=== PATIENT | female | born 1960 | race Caucasian/White ===

== ENCOUNTER 2016-06-29 21:09 | Observation (INO) | payer MEDICAID ==
[~2016-06-29] VITALS: Ht 154.9 cm; Wt 45.4 kg
[2016-06-30 10:10] VITALS: BP 111/69
[2016-06-30] MEDS ORDERED: MORPHINE SULF INJ 2 MG/ML SYRINGE 1ML IV ONE (10:30)
[2016-06-30] MEDS ORDERED: ONDANSETRON HCL 4 MG/2 ML VIAL IV ONE (10:30)
[2016-06-30 11:07] LABS: Basophils # (auto) 0.1 uL; Basophils % (auto) 0.8 % (0.0-2.0); Eosinophils # (auto) 0.2 uL; Eosinophils % (auto) 2.7 % (0.0-7.0); Hematocrit 42.8 % (36.0-46.0); Hemoglobin 14.1 g/dL (12.2-16.2); Lymphocytes % (auto) 23.3 % (10.0-50.0); Mean Corpuscular Hemoglobin 29.3 pg (28.0-32.0); Mean Corpuscular Volume 88.7 fL (80.0-100.0); Mean Platelet Volume 8.2 fL (7.4-10.4); Monocytes # (auto) 0.7 uL; Monocytes % (auto) 7.8 % (0.0-12.0); Neutrophils # (auto) 5.5 uL; Neutrophils % (auto) 65.4 % (37.0-80.0); Platelet Count (auto) 408 10^3/uL (140-450); Red Cell Distribution Width 14.5 % (11.6-16.0); White Blood Cell 8.4 10^3/uL (4.4-10.8)
[2016-06-30 11:36] LABS: Albumin 4.4 g/dL (3.4-5.0); BUN/Creatinine Ratio 16.9; Calcium 7.1 mg/dL (8.5-10.1); Potassium 4.1 mmol/L (3.5-5.1)
[2016-06-30 11:39] LABS: Bilirubin, Total 0.4 mg/dL (0.2-1.0)
[2016-06-30] MEDS ORDERED: SODIUM CHLORIDE 0.9% 1,000 ML IV ONE (11:45)
[2016-06-30 15:33] LABS: Urine Bilirubin Negative (Negative); Urine Blood Negative /uL (Negative); Urine Color Yellow (Yellow); Urine Glucose Normal (Normal); Urine Ketone Negative (Negative); Urine Mucus FEW (None Seen); Urine Nitrite Negative (Negative); Urine RBC 112 /hpf (0 - 4); Urine Squamous Epithelial Cell MOD /hpf (<5); Urine WBC Clumps PRESENT /hpf (None Seen); Urine pH 5.5 (5.0-8.0)
== END 2016-06-30 15:49 | disposition home or self-care (01) | DRG 347 ==
LOC: ER 21:16 → OVERFLOW 06-30 08:05 → ER 06-30 15:49
PROVIDERS: ADMIT Emergency Medicine; ATTEND Emergency Medicine
DX: M48.54XA Collapsed vertebra, not elsewhere classified, thoracic region, initial encounter for fracture (principal); M51.24 Other intervertebral disc displacement, thoracic region; M40.204 Unspecified kyphosis, thoracic region; M54.2 Cervicalgia; F17.210 Nicotine dependence, cigarettes, uncomplicated
CPT/HCPCS: 36415; 72128; 80053; 81001; 81025; 85025; 96361; 96374; 96375; 99285; G0378; J2270; J2405; J7030

== ENCOUNTER 2016-10-30 00:44 | Inpatient (IN) | payer MEDICAID ==
[~2016-10-30] VITALS: Ht 167.6 cm; Wt 49.9 kg
[~2016-10-30 00:44] MED LIST: OLAN20TA13 PO; TRAZ100T2 PO
[2016-10-30 10:22] LABS: Basophils # (auto) 0 uL; Basophils % (auto) 0.3 % (0.0-2.0); CONDITION Y; Eosinophils # (auto) 0.2 uL; Eosinophils % (auto) 1.4 % (0.0-7.0); Hematocrit 42.1 % (36.0-46.0); Hemoglobin 14.2 g/dL (12.2-16.2); Lymphocytes # (auto) 1.5 uL; Lymphocytes % (auto) 12.3 % (10.0-50.0); Mean Corpuscular Hemoglobin 29.5 pg (28.0-32.0); Mean Corpuscular Hgb Conc. 33.8 g/dL (32.0-36.0); Mean Corpuscular Volume 87.5 fL (80.0-100.0); Mean Platelet Volume 7.7 fL (7.4-10.4); Monocytes # (auto) 0.7 uL; Monocytes % (auto) 6.2 % (0.0-12.0); Neutrophils # (auto) 9.5 uL; Neutrophils % (auto) 79.8 % (37.0-80.0); Platelet Count (auto) 337 10^3/uL (140-450); Red Cell Distribution Width 15.8 % (11.6-16.0); White Blood Cell 11.9 10^3/uL (4.4-10.8)
[2016-10-30 10:56] LABS: Albumin 3.5 g/dL (3.4-5.0); BUN/Creatinine Ratio 21.5; Bilirubin, Total 0.6 mg/dL (0.2-1.0); Calcium 8.7 mg/dL (8.5-10.1); Magnesium 2.1 mg/dL (1.6-2.6); Total Protein 7.6 g/dL (6.4-8.2)
[2016-10-30] MEDS ORDERED: SODIUM CHLORIDE 0.9% 1,000 ML IVB ONE (11:58)
[2016-10-30] MEDS ORDERED: MORPHINE SULF INJ 2 MG/ML SYRINGE 1ML IV PRN ×2 (12:00→14:45)
[2016-10-30] MEDS ORDERED: ONDANSETRON HCL 4 MG/2 ML VIAL IV ONE (12:00)
[2016-10-30 12:47] LABS: INR 1.02 (0.9-1.15); Partial Thromboplastin Time 29.9 sec (22.64-33.71); Prothrombin Time 11.1 sec (9.37-12.3)
[2016-10-30 12:49] LABS: Amylase 46 U/L (25-115)
[2016-10-30 13:37] LABS: Urine Bilirubin Negative (Negative); Urine Color Yellow (Yellow); Urine Glucose Normal (Normal); Urine Ketone Negative (Negative); Urine Nitrite Negative (Negative); Urine RBC <1 /hpf (0 - 4); Urine Squamous Epithelial Cell FEW /hpf (<5); Urine Urobilinogen Normal (Negative)
[2016-10-30 13:40] LABS: Urine Blood 1+ /uL (Negative)
[2016-10-30] MEDS ORDERED: LACTULOSE 20Gm/30ML SOLN PO PRN (14:30)
[2016-10-30] MEDS ORDERED: ACETAMINOPHEN 500 MG TAB PO PRN (14:30)
[2016-10-30] MEDS ORDERED: TEMAZEPAM 15 MG CAP PO PRN (14:30)
[2016-10-30] MEDS ORDERED: ONDANSETRON HCL 4 MG/2 ML VIAL IV PRN (14:30)
[2016-10-30] MEDS ORDERED: HYDROcodone-ACET 5/325MG TAB PO PRN (14:30)
[2016-10-30] MEDS ORDERED: SODIUM CHLORIDE 0.9% 1,000 ML IV SCH (14:30)
[2016-10-30] MEDS ORDERED: LORazepam 0.5 MG TAB PO PRN (14:30)
[2016-10-30] MEDS ORDERED: NITROGLYCERIN 0.4 MG SL TAB SL PRN (14:45)
[2016-10-30 15:19] LABS: Cholesterol 179 mg/dL (< 200); HDL Cholesterol 62 mg/dL (40-59); LDL Cholesterol 101 mg/dL (< 100); Triglycerides 136 mg/dL (< 150)
[2016-10-30 15:21] LABS: Temperature: 23.4 C (20.0-25.0)
[2016-10-30] MEDS: MORPHINE SULF INJ 2 MG/ML SYRINGE 1ML IV PRN ×2 (15:41→20:40)
[2016-10-30] MEDS ORDERED: DEXAMETHASONE SOD PHOS 10MG/1ML VIAL INJ IM ONE (20:30)
[2016-10-30] MEDS ORDERED: ATORVASTATIN 20 MG TAB PO SCH (22:00)
[2016-10-30] MEDS: traZODone HCL 50 MG TAB PO SCH (22:25)
[2016-10-30] MEDS: METOCLOPRAMIDE HCL 10 MG TAB PO SCH (22:26)
[2016-10-30] MEDS: MORPHINE SULF 15mg ER tab PO SCH (22:26)
[2016-10-30] MEDS: OLANZapine 5 MG TAB PO SCH (22:26)
[2016-10-30] MEDS: SODIUM CHLORIDE 0.9% 1,000 ML IV SCH (22:27)
[2016-10-30 22:58] VITALS: BP 120/68
[2016-10-31] MEDS ORDERED: MORP60TA25 PO (00:18)
[2016-10-31] MEDS ORDERED: LOR05T PO (00:18)
[2016-10-31] MEDS: MORPHINE SULF INJ 2 MG/ML SYRINGE 1ML IV PRN ×5 (01:13→22:26)
[2016-10-31 05:00] VITALS: BP 89/57
[2016-10-31] MEDS: METOCLOPRAMIDE HCL 10 MG TAB PO SCH ×3 (05:17→22:25)
[2016-10-31] MEDS: SODIUM CHLORIDE 0.9% 1,000 ML IV SCH ×2 (06:15→17:15)
[2016-10-31 08:05] LABS: Basophils # (auto) 0 uL; CONDITION Y; Eosinophils # (auto) 0 uL; Hemoglobin 11.9 g/dL (12.2-16.2); Lymphocytes # (auto) 0.7 uL; Lymphocytes % (auto) 8.8 % (10.0-50.0); Mean Corpuscular Hemoglobin 29.8 pg (28.0-32.0); Mean Corpuscular Hgb Conc. 33.2 g/dL (32.0-36.0); Mean Corpuscular Volume 89.8 fL (80.0-100.0); Mean Platelet Volume 7.7 fL (7.4-10.4); Monocytes # (auto) 0.3 uL; Monocytes % (auto) 3.2 % (0.0-12.0); Neutrophils # (auto) 7.3 uL; Platelet Count (auto) 240 10^3/uL (140-450); Red Cell Distribution Width 15.7 % (11.6-16.0); White Blood Cell 8.3 10^3/uL (4.4-10.8)
[2016-10-31 08:21] LABS: INR 1.06 (0.9-1.15); Partial Thromboplastin Time 29.6 sec (22.64-33.71); Prothrombin Time 11.6 sec (9.37-12.3)
[2016-10-31 08:39] LABS: Albumin 2.9 g/dL (3.4-5.0); Alkaline Phosphatase 92 U/L (45-117); Anion Gap 11 (5-15); Aspartate Aminotransferase 376 U/L (15-37); BUN/Creatinine Ratio 13.4; Bilirubin, Total 0.3 mg/dL (0.2-1.0); Blood Urea Nitrogen 9 mg/dL (7-18); Calcium 8.3 mg/dL (8.5-10.1); Carbon Dioxide 18 mmol/L (21-32); Chloride 105 mmol/L (98-107); GFR African American 117 mL/min; GFR Non-African American 97 mL/min; Glucose 166 mg/dL (74-106); Potassium 4.2 mmol/L (3.5-5.1); Sodium 134 mmol/L (136-145); Total Protein 6.5 g/dL (6.4-8.2)
[2016-10-31 08:48] VITALS: BP 92/56
[2016-10-31] MEDS: ENOXAPARIN SOD 30 MG/0.3 ML SYRINGE SC SCH (10:26)
[2016-10-31] MEDS: DEXAMETHASONE SOD PHOS 10MG/1ML VIAL INJ IM SCH (10:26)
[2016-10-31] MEDS: ASPirin 81 mg TAB PO SCH (10:27)
[2016-10-31] MEDS: MORPHINE SULF 15mg ER tab PO SCH ×2 (10:27→22:00)
[2016-10-31 13:00] VITALS: BP 86/55
[2016-10-31] MEDS ORDERED: SODIUM CHLORIDE 0.9% 1,000 ML IV SCH (14:30)
[2016-10-31 16:45] VITALS: BP 92/65
[2016-10-31 20:00] VITALS: BP 101/63
[2016-10-31 22:00] VITALS: BP 101/63
[2016-10-31] MEDS: traZODone HCL 50 MG TAB PO SCH (22:25)
[2016-10-31] MEDS: OLANZapine 5 MG TAB PO SCH (22:25)
[2016-10-31] MEDS: ATORVASTATIN 20 MG TAB PO SCH (22:25)
[2016-11-01 05:30] VITALS: BP 96/53
[2016-11-01] MEDS: METOCLOPRAMIDE HCL 10 MG TAB PO SCH ×3 (05:47→22:05)
[2016-11-01 07:26] LABS: Basophils # (auto) 0 uL; Basophils % (auto) 0.2 % (0.0-2.0); CONDITION Y; Eosinophils # (auto) 0 uL; Eosinophils % (auto) 0.1 % (0.0-7.0); Hematocrit 32.8 % (36.0-46.0); Lymphocytes # (auto) 1.7 uL; Lymphocytes % (auto) 15.1 % (10.0-50.0); Mean Corpuscular Hemoglobin 29.9 pg (28.0-32.0); Mean Corpuscular Hgb Conc. 33.5 g/dL (32.0-36.0); Mean Corpuscular Volume 89.1 fL (80.0-100.0); Mean Platelet Volume 8.1 fL (7.4-10.4); Monocytes # (auto) 0.8 uL; Monocytes % (auto) 6.9 % (0.0-12.0); Neutrophils # (auto) 8.9 uL; Neutrophils % (auto) 77.7 % (37.0-80.0); Platelet Count (auto) 199 10^3/uL (140-450); Red Cell Distribution Width 15.6 % (11.6-16.0); White Blood Cell 11.4 10^3/uL (4.4-10.8)
[2016-11-01 07:44] LABS: BUN/Creatinine Ratio 19.6; Calcium 8.6 mg/dL (8.5-10.1); Potassium 4.1 mmol/L (3.5-5.1)
[2016-11-01] MEDS: SODIUM CHLORIDE 0.9% 1,000 ML IV SCH ×2 (07:44→19:12)
[2016-11-01 09:00] VITALS: BP 92/54
[2016-11-01] MEDS: MORPHINE SULF 15mg ER tab PO SCH ×2 (09:38→22:00)
[2016-11-01] MEDS: ASPirin 81 mg TAB PO SCH (09:38)
[2016-11-01] MEDS: DEXAMETHASONE SOD PHOS 10MG/1ML VIAL INJ IM SCH (09:39)
[2016-11-01] MEDS: MORPHINE SULF INJ 2 MG/ML SYRINGE 1ML IV PRN ×4 (09:39→22:05)
[2016-11-01] MEDS: ENOXAPARIN SOD 30 MG/0.3 ML SYRINGE SC SCH (09:39)
[2016-11-01] MEDS ORDERED: METO10TA3 PO (13:26)
[2016-11-01] MEDS ORDERED: ATOR20TA50 PO (13:26)
[2016-11-01] MEDS ORDERED: ASPI81CH43 PO (13:26)
[2016-11-01] MEDS ORDERED: [UNRECOGNIZED DRUG - CODE] PO (13:26)
[2016-11-01 13:40] VITALS: BP 141/99
[2016-11-01 16:36] VITALS: BP 139/79
[2016-11-01 20:00] VITALS: BP 148/73
[2016-11-01 21:48] VITALS: BP 124/56
[2016-11-01] MEDS: traZODone HCL 50 MG TAB PO SCH (22:04)
[2016-11-01] MEDS: ATORVASTATIN 20 MG TAB PO SCH (22:04)
[2016-11-01] MEDS: OLANZapine 5 MG TAB PO SCH (22:05)
[2016-11-02 04:30] VITALS: BP 107/49
[2016-11-02] MEDS: METOCLOPRAMIDE HCL 10 MG TAB PO SCH ×2 (06:21→15:15)
[2016-11-02 08:00] VITALS: BP 117/74
[2016-11-02] MEDS: SODIUM CHLORIDE 0.9% 1,000 ML IV SCH (08:15)
[2016-11-02 09:00] VITALS: BP 117/74
[2016-11-02] MEDS: MORPHINE SULF INJ 2 MG/ML SYRINGE 1ML IV PRN (09:55)
[2016-11-02] MEDS: ASPirin 81 mg TAB PO SCH (09:55)
[2016-11-02] MEDS: ENOXAPARIN SOD 30 MG/0.3 ML SYRINGE SC SCH (09:55)
[2016-11-02] MEDS: DEXAMETHASONE SOD PHOS 10MG/1ML VIAL INJ IM SCH (09:55)
[2016-11-02] MEDS: MORPHINE SULF 15mg ER tab PO SCH (10:00)
[2016-11-02 16:36] VITALS: BP 137/76
[2016-11-02 17:07] VITALS: BP 137/76
== END 2016-11-02 17:40 | disposition home health service (06) | DRG 48 ==
LOC: ER 00:44 → EDBD 00:44 → TELE 00:45 → TELE-EAST 21:48 → EAST 11-01 08:58
PROVIDERS: ADMIT Nurse Practitioner Family; ATTEND Nurse Practitioner Acute Care
DX: G62.9 Polyneuropathy, unspecified (principal); E87.1 Hypo-osmolality and hyponatremia; I10 Essential (primary) hypertension; R10.9 Unspecified abdominal pain; J44.9 Chronic obstructive pulmonary disease, unspecified; M48.54XA Collapsed vertebra, not elsewhere classified, thoracic region, initial encounter for fracture; E86.0 Dehydration; F32.9 Major depressive disorder, single episode, unspecified; E78.5 Hyperlipidemia, unspecified; D72.829 Elevated white blood cell count, unspecified; F17.210 Nicotine dependence, cigarettes, uncomplicated; F12.90 Cannabis use, unspecified, uncomplicated; F41.9 Anxiety disorder, unspecified; G44.52 New daily persistent headache (NDPH); G56.00 Carpal tunnel syndrome, unspecified upper limb; G89.4 Chronic pain syndrome; M54.9 Dorsalgia, unspecified; Z90.411 Acquired partial absence of pancreas; Z90.710 Acquired absence of both cervix and uterus; Z93.2 Ileostomy status; Z85.07 Personal history of malignant neoplasm of pancreas; Z82.49 Family history of ischemic heart disease and other diseases of the circulatory system; Z80.0 Family history of malignant neoplasm of digestive organs; Z85.038 Personal history of other malignant neoplasm of large intestine
CPT/HCPCS: 36415; 70450; 71020; 74176; 76705; 80048; 80053; 80061; 80307; 80329; 81001; 82150; 82550; 82607; 82746; 83036; 83690; 83735; 84443; 84484; 85025; 85610; 85652; 85730; 86141; 87081; 87493; 93005; 94761; 96361; 96372; 96374; 96375; 97116; 97163; 97530; J1100; J2405

== ENCOUNTER 2017-03-23 17:01 | Emergency (ER) | payer MEDICAID ==
[~2017-03-23] VITALS: Ht 154.9 cm; Wt 45.4 kg
[~2017-03-23 17:01] MED LIST changes: +ASPI81CH43 PO; +ATOR20TA50 PO; +LORA-654 PO; +METO10TA3 PO; +MORP60TA25 PO; +[UNRECOGNIZED DRUG - CODE] PO
[2017-03-23 17:15] VITALS: BP 143/71
== END 2017-03-23 21:53 | disposition left against medical advice (07) ==
LOC: EDBD 17:01 → ER 17:11
DX: R55 Syncope and collapse (principal); Z53.21 Procedure and treatment not carried out due to patient leaving prior to being seen by health care provider

== ENCOUNTER 2017-09-14 14:27 | Inpatient (IN) | payer MEDICAID ==
[~2017-09-14] VITALS: Ht 152.4 cm; Wt 40.0 kg
[2017-09-14 15:06] LABS: Basophils # (auto) 0 uL; Basophils % (auto) 0.4 % (0.0-2.0); Eosinophils # (auto) 0.1 uL; Eosinophils % (auto) 0.8 % (0.0-7.0); Hematocrit 41.8 % (36.0-46.0); Hemoglobin 13.9 g/dL (12.2-16.2); Lymphocytes # (auto) 1.5 uL; Lymphocytes % (auto) 16.6 % (10.0-50.0); Mean Corpuscular Hemoglobin 29.8 pg (28.0-32.0); Mean Corpuscular Hgb Conc. 33.2 g/dL (32.0-36.0); Mean Corpuscular Volume 89.8 fL (80.0-100.0); Monocytes # (auto) 0.7 uL; Monocytes % (auto) 7.8 % (0.0-12.0); Neutrophils # (auto) 6.9 uL; Neutrophils % (auto) 74.4 % (37.0-80.0); Nucleated Red Blood Cells % 0.1 %; Platelet Count (auto) 324 10^3/uL (140-450); Red Blood Cells 4.66 10^6/uL (4.0-5.20); Red Cell Distribution Width 14.9 % (11.8-14.3); White Blood Cell 9.3 10^3/uL (4.4-10.8)
[2017-09-14] MEDS ORDERED: SODIUM CHLORIDE 0.9% 500 ML IVB ONE (15:12)
[2017-09-14] MEDS ORDERED: PANTOPRAZOLE 40 MG/10 ML VIAL IV STA (15:12)
[2017-09-14] MEDS ORDERED: HYDROmorphone HCL 2 MG/ML VL IV ONE (15:15)
[2017-09-14] MEDS ORDERED: ONDANSETRON HCL 4 MG/2 ML VIAL IV ONE (15:15)
[2017-09-14 15:37] LABS: Albumin 3.5 g/dL (3.4-5.0); BUN/Creatinine Ratio 30.8; Bilirubin, Total 0.2 mg/dL (0.2-1.0); Calcium 9.4 mg/dL (8.5-10.1); Magnesium 2.9 mg/dL (1.6-2.6); Potassium 4.4 mmol/L (3.5-5.1); Total Protein 7.9 g/dL (6.4-8.2)
[2017-09-14] MEDS ORDERED: METOCLOPRAMIDE HCL 10 MG TAB PO PRN (18:15)
[2017-09-14] MEDS ORDERED: PANTOPRAZOLE 40 MG TAB PO ONE (18:15)
[2017-09-14] MEDS ORDERED: OXYCODONE W/ ACETAMINOPHEN 5/325MG TABLET PO PRN (18:15)
[2017-09-14] MEDS ORDERED: ONDANSETRON HCL 4 MG/2 ML VIAL IV PRN (18:30)
[2017-09-14] MEDS ORDERED: TEMAZEPAM 15 MG CAP PO PRN (18:30)
[2017-09-14] MEDS ORDERED: ACETAMINOPHEN 325 MG TAB PO PRN (18:30)
[2017-09-14] MEDS ORDERED: LORazepam 2MG/ML-1ML VIAL IV PRN (18:45)
[2017-09-14] MEDS: SODIUM CHLORIDE 0.9% 1,000 ML IV SCH (19:25)
[2017-09-14 19:50] VITALS: BP 121/71
[2017-09-14] MEDS: CALCIUM CARB 500 MG CHEW TAB PO SCH (21:50)
[2017-09-14] MEDS: MEGESTROL ACETATE 20 MG TAB PO SCH (21:50)
[2017-09-14] MEDS: FAMOTIDINE 20 MG TAB PO SCH (21:51)
[2017-09-14 22:00] VITALS: BP 121/71
[2017-09-15 06:49] LABS: Basophils # (auto) 0 uL; Basophils % (auto) 0.6 % (0.0-2.0); Eosinophils # (auto) 0.1 uL; Eosinophils % (auto) 2.2 % (0.0-7.0); Hematocrit 37.3 % (36.0-46.0); Hemoglobin 12.4 g/dL (12.2-16.2); Lymphocytes # (auto) 1.4 uL; Lymphocytes % (auto) 24.5 % (10.0-50.0); Mean Corpuscular Hemoglobin 29.9 pg (28.0-32.0); Mean Corpuscular Hgb Conc. 33.2 g/dL (32.0-36.0); Mean Corpuscular Volume 90.1 fL (80.0-100.0); Monocytes # (auto) 0.5 uL; Monocytes % (auto) 9.4 % (0.0-12.0); Neutrophils # (auto) 3.6 uL; Neutrophils % (auto) 63.3 % (37.0-80.0); Nucleated Red Blood Cells % 0.1 %; Platelet Count (auto) 249 10^3/uL (140-450); Red Blood Cells 4.14 10^6/uL (4.0-5.20); Red Cell Distribution Width 15.1 % (11.8-14.3); White Blood Cell 5.7 10^3/uL (4.4-10.8)
[2017-09-15 07:10] LABS: Potassium 3.9 mmol/L (3.5-5.1)
[2017-09-15 07:15] LABS: Bilirubin, Total 0.3 mg/dL (0.2-1.0); Calcium 8.5 mg/dL (8.5-10.1); Total Protein 6.6 g/dL (6.4-8.2)
[2017-09-15 09:01] VITALS: BP 118/68
[2017-09-15] MEDS: FERROUS SULFATE 300 MG/5 ML ORAL LIQ PO SCH ×2 (09:11→17:22)
[2017-09-15] MEDS: MULTIPLE VITAMIN TAB PO SCH (10:21)
[2017-09-15] MEDS: FAMOTIDINE 20 MG TAB PO SCH (10:21)
[2017-09-15] MEDS: MEGESTROL ACETATE 20 MG TAB PO SCH ×2 (10:22→21:53)
[2017-09-15] MEDS: CALCIUM CARB 500 MG CHEW TAB PO SCH ×2 (10:22→21:52)
[2017-09-15] MEDS: PANTOPRAZOLE 40 MG TAB PO SCH (10:22)
[2017-09-15] MEDS: LORazepam 0.5 MG TAB PO PRN ×2 (10:50→17:21)
[2017-09-15] MEDS: SODIUM CHLORIDE 0.9% 1,000 ML IV SCH (10:58)
[2017-09-15] MEDS: MORPHINE SULFATE 8mg/ml INJ SDV IV PRN ×2 (12:23→20:41)
[2017-09-15 13:17] VITALS: BP 120/75
[2017-09-15 17:16] VITALS: BP 112/69
[2017-09-15 22:00] VITALS: BP 116/65
[2017-09-16] MEDS: SODIUM CHLORIDE 0.9% 1,000 ML IV SCH ×2 (03:38→22:30)
[2017-09-16] MEDS: MORPHINE SULFATE 8mg/ml INJ SDV IV PRN ×4 (04:47→22:40)
[2017-09-16 05:54] VITALS: BP 97/70
[2017-09-16 07:06] LABS: Basophils # (auto) 0 uL; Basophils % (auto) 0.5 % (0.0-2.0); Eosinophils # (auto) 0.2 uL; Eosinophils % (auto) 1.8 % (0.0-7.0); Hematocrit 38.1 % (36.0-46.0); Hemoglobin 12.7 g/dL (12.2-16.2); Lymphocytes # (auto) 1.5 uL; Lymphocytes % (auto) 17.5 % (10.0-50.0); Mean Corpuscular Hemoglobin 30.5 pg (28.0-32.0); Mean Corpuscular Hgb Conc. 33.3 g/dL (32.0-36.0); Mean Corpuscular Volume 91.4 fL (80.0-100.0); Monocytes # (auto) 0.9 uL; Monocytes % (auto) 10.3 % (0.0-12.0); Neutrophils % (auto) 69.9 % (37.0-80.0); Nucleated Red Blood Cells % 0.1 %; Platelet Count (auto) 263 10^3/uL (140-450); Red Blood Cells 4.17 10^6/uL (4.0-5.20); Red Cell Distribution Width 15.1 % (11.8-14.3); White Blood Cell 8.6 10^3/uL (4.4-10.8)
[2017-09-16 07:27] LABS: BUN/Creatinine Ratio 26.7; Potassium 3.9 mmol/L (3.5-5.1)
[2017-09-16 07:28] LABS: Albumin 3.3 g/dL (3.4-5.0); Bilirubin, Total 0.2 mg/dL (0.2-1.0); Calcium 8.6 mg/dL (8.5-10.1); Magnesium 2.2 mg/dL (1.6-2.6); Total Protein 6.9 g/dL (6.4-8.2)
[2017-09-16 09:00] VITALS: BP 106/67
[2017-09-16] MEDS: MULTIPLE VITAMIN TAB PO SCH (09:59)
[2017-09-16] MEDS: MEGESTROL ACETATE 20 MG TAB PO SCH ×2 (09:59→22:30)
[2017-09-16] MEDS: CALCIUM CARB 500 MG CHEW TAB PO SCH ×2 (09:59→22:30)
[2017-09-16] MEDS: FAMOTIDINE 20 MG TAB PO SCH (09:59)
[2017-09-16] MEDS: PANTOPRAZOLE 40 MG TAB PO SCH ×2 (10:00→22:30)
[2017-09-16] MEDS: FERROUS SULFATE 300 MG/5 ML ORAL LIQ PO SCH ×2 (10:00→18:47)
[2017-09-16 13:00] VITALS: BP 127/82
[2017-09-16 15:18] LABS: Urine Bacteria FEW /hpf (None Seen); Urine Blood Negative /uL (Negative); Urine Specific Gravity 1.012 (1.001-1.035); Urine WBC 5 /hpf (0 - 5)
[2017-09-16 17:00] VITALS: BP 114/51
[2017-09-16 20:00] VITALS: BP 134/82
[2017-09-16 20:11] LABS: INR 0.99 (0.9-1.15); Partial Thromboplastin Time 26.6 sec (23.78-33.04); Prothrombin Time 10.6 sec (9.27-12.13)
[2017-09-16] MEDS: LORazepam 0.5 MG TAB PO PRN (21:08)
[2017-09-16 22:00] VITALS: BP 134/82
[2017-09-17] MEDS: MORPHINE SULFATE 8mg/ml INJ SDV IV PRN ×2 (02:49→08:42)
[2017-09-17 04:47] VITALS: BP 121/65
[2017-09-17] MEDS: FERROUS SULFATE 300 MG/5 ML ORAL LIQ PO SCH ×2 (08:00→18:00)
[2017-09-17 09:00] VITALS: BP 137/67
[2017-09-17] MEDS: MULTIPLE VITAMIN TAB PO SCH (09:10)
[2017-09-17] MEDS: PANTOPRAZOLE 40 MG TAB PO SCH ×2 (09:10→22:00)
[2017-09-17] MEDS: MEGESTROL ACETATE 20 MG TAB PO SCH ×2 (09:10→22:00)
[2017-09-17] MEDS: CALCIUM CARB 500 MG CHEW TAB PO SCH ×2 (09:10→22:00)
[2017-09-17] MEDS ORDERED: diphenhdrAMINE HCL 50 MG/1 ML VL ONE (11:30)
[2017-09-17] MEDS ORDERED: NALOXONE HCL 0.4 MG/ML VIAL ONE (11:30)
[2017-09-17] MEDS ORDERED: LIDOCAINE VISCOUS 2% 15ML UD ONE (11:30)
[2017-09-17] MEDS ORDERED: FLUMAZENIL 0.1 MG/ML INJ 10ML MDV IV ONE (11:30)
[2017-09-17] MEDS ORDERED: SODIUM CHLORIDE LOCK 10 ML ONE (11:30)
[2017-09-17] MEDS: fentaNYL CITRATE 100 MCG/2 ML VL ONE ×2 (11:50→11:53)
[2017-09-17] MEDS: MIDAZOLAM HCL 5 MG/ML-1ML VIAL ONE ×2 (11:50→11:53)
[2017-09-17] MEDS: SODIUM CHLORIDE 0.9% 1,000 ML IV SCH (12:58)
[2017-09-17 13:00] VITALS: BP 127/84
[2017-09-17 17:00] VITALS: BP 91/38
[2017-09-17] MEDS: SUCRALFATE 1 GM/10 ML ORAL SUSP PO SCH ×2 (20:30→22:00)
[2017-09-17] MEDS: MORPHINE SULFATE 10 MG/ML INJ 1ML SDV IV PRN (20:35)
[2017-09-17 22:41] VITALS: BP 91/57
[2017-09-18] MEDS: MORPHINE SULFATE 10 MG/ML INJ 1ML SDV IV PRN ×2 (01:26→07:00)
[2017-09-18 05:21] VITALS: BP 102/39
[2017-09-18] MEDS: SODIUM CHLORIDE 0.9% 1,000 ML IV SCH (05:38)
[2017-09-18] MEDS: SUCRALFATE 1 GM/10 ML ORAL SUSP PO SCH ×2 (06:59→11:30)
[2017-09-18 07:39] LABS: Basophils # (auto) 0 uL; Basophils % (auto) 0.5 % (0.0-2.0); Eosinophils # (auto) 0.2 uL; Eosinophils % (auto) 2.4 % (0.0-7.0); Hemoglobin 12.1 g/dL (12.2-16.2); Lymphocytes # (auto) 2.2 uL; Mean Corpuscular Hemoglobin 29.6 pg (28.0-32.0); Mean Corpuscular Hgb Conc. 32.7 g/dL (32.0-36.0); Mean Corpuscular Volume 90.3 fL (80.0-100.0); Monocytes # (auto) 0.7 uL; Monocytes % (auto) 9.1 % (0.0-12.0); Neutrophils # (auto) 4.6 uL; Platelet Count (auto) 241 10^3/uL (140-450); Red Cell Distribution Width 15.2 % (11.8-14.3); White Blood Cell 7.7 10^3/uL (4.4-10.8)
[2017-09-18 07:44] LABS: Albumin 3.1 g/dL (3.4-5.0); BUN/Creatinine Ratio 11.5; Bilirubin, Total 0.3 mg/dL (0.2-1.0); Calcium 8.9 mg/dL (8.5-10.1); Potassium 4.1 mmol/L (3.5-5.1); Total Protein 6.7 g/dL (6.4-8.2)
[2017-09-18] MEDS: FERROUS SULFATE 300 MG/5 ML ORAL LIQ PO SCH (08:09)
[2017-09-18 09:00] VITALS: BP 91/58
[2017-09-18] MEDS: MEGESTROL ACETATE 20 MG TAB PO SCH (10:02)
[2017-09-18] MEDS: CALCIUM CARB 500 MG CHEW TAB PO SCH (10:02)
[2017-09-18] MEDS: MULTIPLE VITAMIN TAB PO SCH (10:02)
[2017-09-18] MEDS: PANTOPRAZOLE 40 MG TAB PO SCH (10:02)
== END 2017-09-18 15:15 | disposition home or self-care (01) | DRG 241 ==
LOC: ER 14:32 → TELE 14:33 → TELE-CENTR 19:50 → CENTRAL 09-15 00:42
PROVIDERS: ADMIT Internal Medicine; ATTEND Internal Medicine
PROC: 0DB68ZX Excision of Stomach, Via Natural or Artificial Opening Endoscopic, Diagnostic (ICD-10-PCS; principal; 2017-09-17 11:45)
DX: K29.70 Gastritis, unspecified, without bleeding (principal); E44.0 Moderate protein-calorie malnutrition; E83.41 Hypermagnesemia; E88.09 Other disorders of plasma-protein metabolism, not elsewhere classified; G40.909 Epilepsy, unspecified, not intractable, without status epilepticus; E86.0 Dehydration; F17.210 Nicotine dependence, cigarettes, uncomplicated; Z68.1 Body mass index [BMI] 19.9 or less, adult; F32.9 Major depressive disorder, single episode, unspecified; F41.9 Anxiety disorder, unspecified; K50.90 Crohn's disease, unspecified, without complications; I70.8 Atherosclerosis of other arteries; Z82.49 Family history of ischemic heart disease and other diseases of the circulatory system; Z85.07 Personal history of malignant neoplasm of pancreas; Z90.411 Acquired partial absence of pancreas; Z90.710 Acquired absence of both cervix and uterus; Z88.5 Allergy status to narcotic agent; Z88.1 Allergy status to other antibiotic agents; Z88.8 Allergy status to other drugs, medicaments and biological substances; Z79.899 Other long term (current) drug therapy; Z90.49 Acquired absence of other specified parts of digestive tract; Z90.89 Acquired absence of other organs; Z93.2 Ileostomy status
CPT/HCPCS: 36415; 43239; 74176; 80053; 81001; 83690; 83735; 85025; 85610; 85730; 87081; 87086; 87493; 93005; 96361; 96374; 96375; C9113; J2250; J2270; J2405

== ENCOUNTER 2017-10-08 17:43 | Inpatient (IN) | payer MEDICAID ==
[~2017-10-08] VITALS: Ht 154.9 cm; Wt 47.9 kg
[2017-10-08 19:34] LABS: Basophils # (auto) 0.1 uL; Basophils % (auto) 0.4 % (0.0-2.0); Eosinophils # (auto) 0.1 uL; Eosinophils % (auto) 0.7 % (0.0-7.0); Hematocrit 40.5 % (36.0-46.0); Hemoglobin 13.7 g/dL (12.2-16.2); Lymphocytes # (auto) 2.5 uL; Lymphocytes % (auto) 13.3 % (10.0-50.0); Mean Corpuscular Hemoglobin 29.7 pg (28.0-32.0); Mean Corpuscular Hgb Conc. 33.9 g/dL (32.0-36.0); Mean Corpuscular Volume 87.6 fL (80.0-100.0); Monocytes % (auto) 5.2 % (0.0-12.0); Neutrophils # (auto) 15.1 uL; Neutrophils % (auto) 80.4 % (37.0-80.0); Nucleated Red Blood Cells % 0.1 %; Platelet Count (auto) 334 10^3/uL (140-450); Red Blood Cells 4.62 10^6/uL (4.0-5.20); Red Cell Distribution Width 14.3 % (11.8-14.3); White Blood Cell 18.8 10^3/uL (4.4-10.8)
[2017-10-08 19:52] LABS: Albumin 3.6 g/dL (3.4-5.0); Amylase 167 U/L (25-115); Anion Gap 9 (5-15); BUN/Creatinine Ratio 14.3; Blood Urea Nitrogen 11 mg/dL (7-18); Calcium 9.1 mg/dL (8.5-10.1); Carbon Dioxide 26 mmol/L (21-32); Chloride 101 mmol/L (98-107); GFR African American 99 mL/min; GFR Non-African American 82 mL/min; Glucose 101 mg/dL (74-106); Lipase 1354 U/L (73-393); Magnesium 2.2 mg/dL (1.6-2.6); Potassium 4.2 mmol/L (3.5-5.1); Sodium 136 mmol/L (136-145)
[2017-10-08 20:06] LABS: Alanine Aminotransferase 26 U/L (13-56); Alkaline Phosphatase 90 U/L (45-117); Aspartate Aminotransferase 13 U/L (15-37); Bilirubin, Total 0.3 mg/dL (0.2-1.0); Total Protein 7.7 g/dL (6.4-8.2)
[2017-10-09] MEDS ORDERED: MEPERIDINE HCL (50 MG/ML) 1 ML VIAL IV ONE (03:15)
[2017-10-09] MEDS ORDERED: ONDANSETRON HCL 4 MG/2 ML VIAL IV ONE (03:15)
[2017-10-09] MEDS ORDERED: SODIUM CHLORIDE 0.9% 1,000 ML IV ONE (07:45)
[2017-10-09] MEDS ORDERED: metroNIDAZOLE 500MG/100ML 100 ML IV ONE (08:30)
[2017-10-09] MEDS ORDERED: PIPERACILLIN-TAZOB 3.375GM 100 ML IV ONE (08:30)
[2017-10-09] MEDS ORDERED: PANTOPRAZOLE 40 MG/10 ML VIAL IV ONE ×2 (09:00→09:13)
[2017-10-09] MEDS ORDERED: NITROGLYCERIN 0.4 MG SL TAB SL PRN (09:00)
[2017-10-09] MEDS ORDERED: NALBUPHINE HCL 10 MG/1ml INJECTION IV PRN (09:00)
[2017-10-09] MEDS ORDERED: MORPHINE SULF(PF) 0.5MG/ML 10ML VIAL IV PRN (09:00)
[2017-10-09] MEDS: SODIUM CHLORIDE 0.9% 1,000 ML IV SCH ×3 (10:02→21:24)
[2017-10-09 10:31] LABS: Urine Bacteria NONE SEEN /hpf (None Seen); Urine Blood Negative /uL (Negative); Urine Mucus FEW (None Seen); Urine Specific Gravity 1.014 (1.001-1.035); Urine WBC 1 /hpf (0 - 5)
[2017-10-09] MEDS ORDERED: PROMETHAZINE HCL 25 MG/ML 1ML ONE ×2 (12:17→16:47)
[2017-10-09] MEDS: PROMETHAZINE HCL 25 MG/ML 1ML IV PRN ×2 (12:31→17:01)
[2017-10-09] MEDS ORDERED: IOHEXOL 300 MG/ML 75ml BOTTLE IJ ONE (12:58)
[2017-10-09] MEDS: metroNIDAZOLE 500MG/100ML 100 ML IV SCH ×3 (14:20→21:45)
[2017-10-09] MEDS: NALBUPHINE HCL 10 MG/1ml INJECTION IV PRN ×2 (17:01→21:15)
[2017-10-09] MEDS: MEPERIDINE HCL (25 MG/ML) 1ML VIAL IV PRN (19:58)
[2017-10-09 20:05] VITALS: BP 79/51
[2017-10-09 21:26] VITALS: BP 79/51
[2017-10-09] MEDS ORDERED: SODIUM CHLORIDE 0.9% 500 ML IV ONE (21:45)
[2017-10-09 22:00] VITALS: BP 79/51
[2017-10-09 23:12] VITALS: BP 84/52
[2017-10-10] VITALS (7 sets, daily range): BP systolic 86–124; BP diastolic 49–74
[2017-10-10] MEDS: SODIUM CHLORIDE 0.9% 1,000 ML IV SCH ×3 (04:51→18:13)
[2017-10-10] MEDS: metroNIDAZOLE 500MG/100ML 100 ML IV SCH ×3 (06:13→21:18)
[2017-10-10] MEDS: NALBUPHINE HCL 10 MG/1ml INJECTION IV PRN (08:23)
[2017-10-10] MEDS: MEPERIDINE HCL (25 MG/ML) 1ML VIAL IV PRN ×3 (10:06→20:01)
[2017-10-10] MEDS: cefTRIAXone 1GM/10ml IVPUSH 10 ML IV SCH (10:06)
[2017-10-10] MEDS: PANTOPRAZOLE 40 MG/10 ML VIAL IV SCH (10:07)
[2017-10-10] MEDS: BOOST 8 ounces PO SCH ×3 (13:51→21:29)
[2017-10-10 21:27] LABS: Basophils # (auto) 0 uL; Basophils % (auto) 0.4 % (0.0-2.0); Eosinophils # (auto) 0.1 uL; Eosinophils % (auto) 1.2 % (0.0-7.0); Hematocrit 35.8 % (36.0-46.0); Hemoglobin 11.9 g/dL (12.2-16.2); Lymphocytes # (auto) 1.2 uL; Lymphocytes % (auto) 17.2 % (10.0-50.0); Mean Corpuscular Hemoglobin 29.7 pg (28.0-32.0); Mean Corpuscular Hgb Conc. 33.2 g/dL (32.0-36.0); Mean Corpuscular Volume 89.3 fL (80.0-100.0); Monocytes # (auto) 0.6 uL; Monocytes % (auto) 8.6 % (0.0-12.0); Neutrophils # (auto) 5.1 uL; Neutrophils % (auto) 72.6 % (37.0-80.0); Nucleated Red Blood Cells % 0.2 %; Platelet Count (auto) 234 10^3/uL (140-450); Red Blood Cells 4.02 10^6/uL (4.0-5.20); Red Cell Distribution Width 14.4 % (11.8-14.3)
[2017-10-10] MEDS: LORazepam 2MG/ML-1ML VIAL IV PRN (21:29)
[2017-10-10 21:38] LABS: INR 1.07 (0.9-1.15); Partial Thromboplastin Time 30.1 sec (23.78-33.04); Prothrombin Time 11.4 sec (9.27-12.13)
[2017-10-10 21:45] LABS: Cholesterol 138 mg/dL (< 200); HDL Cholesterol 58 mg/dL (40-59); LDL Cholesterol 77 mg/dL (< 100); Triglycerides 81 mg/dL (< 150)
[2017-10-10 21:47] LABS: BUN/Creatinine Ratio 19.1; Bilirubin, Total 0.2 mg/dL (0.2-1.0); Calcium 8.2 mg/dL (8.5-10.1); Total Protein 6.6 g/dL (6.4-8.2)
[2017-10-11 00:08] VITALS: BP 121/70
[2017-10-11] MEDS: MEPERIDINE HCL (25 MG/ML) 1ML VIAL IV PRN ×4 (00:14→13:49)
[2017-10-11] MEDS: SODIUM CHLORIDE 0.9% 1,000 ML IV SCH ×3 (00:51→14:58)
[2017-10-11] MEDS: LORazepam 2MG/ML-1ML VIAL IV PRN ×2 (03:42→09:57)
[2017-10-11 05:00] VITALS: BP 130/74
[2017-10-11] MEDS: metroNIDAZOLE 500MG/100ML 100 ML IV SCH ×2 (05:08→13:49)
[2017-10-11] MEDS: BOOST 8 ounces PO SCH ×2 (06:00→11:35)
[2017-10-11 07:32] LABS: Basophils # (auto) 0 uL; Basophils % (auto) 0.6 % (0.0-2.0); Eosinophils # (auto) 0.1 uL; Eosinophils % (auto) 2.7 % (0.0-7.0); Hematocrit 33.1 % (36.0-46.0); Hemoglobin 11.1 g/dL (12.2-16.2); Lymphocytes # (auto) 1.5 uL; Lymphocytes % (auto) 28.1 % (10.0-50.0); Mean Corpuscular Hemoglobin 29.5 pg (28.0-32.0); Mean Corpuscular Hgb Conc. 33.6 g/dL (32.0-36.0); Mean Corpuscular Volume 87.8 fL (80.0-100.0); Monocytes # (auto) 0.5 uL; Monocytes % (auto) 8.9 % (0.0-12.0); Neutrophils # (auto) 3.2 uL; Neutrophils % (auto) 59.7 % (37.0-80.0); Nucleated Red Blood Cells % 0.2 %; Platelet Count (auto) 192 10^3/uL (140-450); Red Blood Cells 3.77 10^6/uL (4.0-5.20); Red Cell Distribution Width 14.5 % (11.8-14.3); White Blood Cell 5.4 10^3/uL (4.4-10.8)
[2017-10-11 07:52] LABS: Albumin 2.6 g/dL (3.4-5.0); BUN/Creatinine Ratio 16.7; Bilirubin, Total 0.6 mg/dL (0.2-1.0); Calcium 8.3 mg/dL (8.5-10.1); Potassium 3.9 mmol/L (3.5-5.1); Total Protein 5.7 g/dL (6.4-8.2)
[2017-10-11 08:00] VITALS: BP 113/75
[2017-10-11] MEDS: PANTOPRAZOLE 40 MG/10 ML VIAL IV SCH (09:12)
[2017-10-11] MEDS: cefTRIAXone 1GM/10ml IVPUSH 10 ML IV SCH (09:13)
[2017-10-11 10:18] VITALS: BP 113/75
[2017-10-11 12:55] VITALS: BP 118/70
== END 2017-10-11 17:01 | disposition home or self-care (01) | DRG 720 ==
LOC: EDBD 17:43 → EDUNIT# 17:43 → ER 17:43 → TELE 17:44 → ER 10-09 01:28 → TELE-EAST 10-09 20:03
PROVIDERS: ADMIT Internal Medicine; ATTEND Internal Medicine
DX: A41.9 Sepsis, unspecified organism (principal); K56.609 Unspecified intestinal obstruction, unspecified as to partial versus complete obstruction; K85.90 Acute pancreatitis without necrosis or infection, unspecified; E44.0 Moderate protein-calorie malnutrition; K86.2 Cyst of pancreas; F17.210 Nicotine dependence, cigarettes, uncomplicated; F32.9 Major depressive disorder, single episode, unspecified; F41.9 Anxiety disorder, unspecified; G40.909 Epilepsy, unspecified, not intractable, without status epilepticus; K31.89 Other diseases of stomach and duodenum; I10 Essential (primary) hypertension; Z80.0 Family history of malignant neoplasm of digestive organs; Z82.49 Family history of ischemic heart disease and other diseases of the circulatory system; Z85.038 Personal history of other malignant neoplasm of large intestine; Z85.07 Personal history of malignant neoplasm of pancreas; Z90.411 Acquired partial absence of pancreas; Z90.710 Acquired absence of both cervix and uterus; Z93.3 Colostomy status; Z90.49 Acquired absence of other specified parts of digestive tract; Z88.8 Allergy status to other drugs, medicaments and biological substances; Z79.82 Long term (current) use of aspirin; Z79.899 Other long term (current) drug therapy; Z68.20 Body mass index [BMI] 20.0-20.9, adult
CPT/HCPCS: 36415; 71046; 74176; 74177; 80053; 80061; 81001; 82150; 83605; 83690; 83735; 84484; 85025; 85610; 85652; 85730; 86141; 87040; 87081; 87086; 93005; 96361; 96374; 96375; 96376; 99291; C9113; J2405; J3490; Q9967

== ENCOUNTER 2017-12-08 13:40 | Inpatient (IN) | payer MEDICAID ==
[~2017-12-08] VITALS: Ht 152.4 cm; Wt 45.9 kg
[2017-12-08 15:13] LABS: Basophils # (auto) 0 uL; Basophils % (auto) 0.6 % (0.0-2.0); Eosinophils # (auto) 0.2 uL; Eosinophils % (auto) 2.2 % (0.0-7.0); Hematocrit 39.9 % (36.0-46.0); Hemoglobin 13.2 g/dL (12.2-16.2); Lymphocytes # (auto) 1.9 uL; Mean Corpuscular Hemoglobin 29.5 pg (28.0-32.0); Mean Corpuscular Hgb Conc. 33.1 g/dL (32.0-36.0); Monocytes # (auto) 0.6 uL; Neutrophils # (auto) 4.9 uL; Neutrophils % (auto) 64.2 % (37.0-80.0); Nucleated Red Blood Cells % 0.1 %; Platelet Count (auto) 277 10^3/uL (140-450); Red Blood Cells 4.49 10^6/uL (4.0-5.20); Red Cell Distribution Width 15.8 % (11.8-14.3); White Blood Cell 7.7 10^3/uL (4.4-10.8)
[2017-12-08 15:40] LABS: Alanine Aminotransferase 25 U/L (13-56); Albumin 3.8 g/dL (3.4-5.0); Alkaline Phosphatase 75 U/L (45-117); Anion Gap 9 (5-15); Aspartate Aminotransferase 19 U/L (15-37); BUN/Creatinine Ratio 15.2; Bilirubin, Total 0.6 mg/dL (0.2-1.0); Blood Alcohol < 3.0 mg/dL (0-5); Blood Urea Nitrogen 10 mg/dL (7-18); Calcium 8.9 mg/dL (8.5-10.1); Carbon Dioxide 20 mmol/L (21-32); Chloride 108 mmol/L (98-107); GFR African American 118 mL/min; GFR Non-African American 98 mL/min; Glucose 94 mg/dL (74-106); Potassium 3.8 mmol/L (3.5-5.1); Sodium 137 mmol/L (136-145); Total Protein 7.2 g/dL (6.4-8.2)
[2017-12-08] MEDS ORDERED: SODIUM CHLORIDE 0.9% 1,000 ML IV SCH (23:45)
[2017-12-08] MEDS ORDERED: ACETAMINOPHEN 500 MG TAB PO PRN (23:45)
[2017-12-08] MEDS ORDERED: traZODone HCL 50 MG TAB PO ONE (23:45)
[2017-12-08 23:57] LABS: Urine Bacteria FEW /hpf (None Seen); Urine Blood Negative /uL (Negative); Urine Hyaline Cast FEW /lpf (0 - 2); Urine Mucus FEW (None Seen); Urine Specific Gravity 1.011 (1.001-1.035); Urine WBC 6 /hpf (0 - 5)
[2017-12-09] MEDS: HYDROcodone-ACET 5/325MG TAB PO PRN ×2 (00:02→06:02)
[2017-12-09] MEDS: LORazepam 2MG/ML-1ML VIAL IV PRN ×3 (00:02→20:03)
[2017-12-09 00:12] LABS: Alcohol, Urine < 3.0 mg/dL (0-5); Amphetamine Screen, Urine NEGATIVE (NEGATIVE); Barbiturate Scree,Urine NEGATIVE (NEGATIVE); Benzodiazephine Screen, Urine NEGATIVE (NEGATIVE); Cannabinoid Screen, Urine NEGATIVE (NEGATIVE); Cocaine Screen, Urine NEGATIVE (NEGATIVE); Opiate Scree,Urine NEGATIVE (NEGATIVE); Phencyclidine Screen, Urine NEGATIVE (NEGATIVE)
[2017-12-09 01:20] VITALS: BP 89/54
[2017-12-09] MEDS ORDERED: OLANZapine 5 MG TAB PO ONE (04:00)
[2017-12-09 05:00] VITALS: BP 90/51
[2017-12-09] MEDS: PANTOPRAZOLE 40 MG TAB PO SCH (06:02)
[2017-12-09] MEDS ORDERED: AMIT PO (07:57)
[2017-12-09] MEDS ORDERED: AMITRIP PO (07:57)
[2017-12-09] MEDS ORDERED: CHL25T PO (07:58)
[2017-12-09] MEDS ORDERED: PERCOT PO (07:59)
[2017-12-09 09:00] VITALS: BP 72/48
[2017-12-09 09:00] LABS: Basophils # (auto) 0 uL; Basophils % (auto) 0.6 % (0.0-2.0); Eosinophils # (auto) 0.1 uL; Hematocrit 32.5 % (36.0-46.0); Hemoglobin 10.9 g/dL (12.2-16.2); Lymphocytes # (auto) 1.2 uL; Lymphocytes % (auto) 29.8 % (10.0-50.0); Mean Corpuscular Hemoglobin 30.3 pg (28.0-32.0); Mean Corpuscular Hgb Conc. 33.6 g/dL (32.0-36.0); Mean Corpuscular Volume 90.2 fL (80.0-100.0); Monocytes # (auto) 0.3 uL; Monocytes % (auto) 7.1 % (0.0-12.0); Neutrophils # (auto) 2.3 uL; Neutrophils % (auto) 59.5 % (37.0-80.0); Nucleated Red Blood Cells % 0.1 %; Platelet Count (auto) 188 10^3/uL (140-450); Red Blood Cells 3.61 10^6/uL (4.0-5.20); Red Cell Distribution Width 15.2 % (11.8-14.3); White Blood Cell 3.9 10^3/uL (4.4-10.8)
[2017-12-09 09:28] LABS: BUN/Creatinine Ratio 16.9; Calcium 7.7 mg/dL (8.5-10.1); Potassium 3.9 mmol/L (3.5-5.1)
[2017-12-09] MEDS ORDERED: chlorproMAZINE HCL 25 MG TAB PO PRN (12:45)
[2017-12-09 13:00] VITALS: BP 86/53
[2017-12-09] MEDS: SODIUM CHLORIDE 0.9% 1,000 ML IV SCH (13:07)
[2017-12-09 17:00] VITALS: BP 96/60
[2017-12-09] MEDS: OXYCODONE W/ ACETAMINOPHEN 5/325MG TABLET PO PRN (20:03)
[2017-12-09] MEDS: AMITRIPTYLINE HCL 25 MG TAB PO SCH (21:27)
[2017-12-09 22:00] VITALS: BP 106/67
[2017-12-09] MEDS ORDERED: OLANZapine 5 MG TAB PO SCH (22:00)
[2017-12-09] MEDS ORDERED: traZODone HCL 50 MG TAB PO SCH (22:00)
[2017-12-10] MEDS: SODIUM CHLORIDE 0.9% 1,000 ML IV SCH ×2 (02:05→15:25)
[2017-12-10] MEDS: LORazepam 2MG/ML-1ML VIAL IV PRN ×2 (02:41→12:25)
[2017-12-10] MEDS: OXYCODONE W/ ACETAMINOPHEN 5/325MG TABLET PO PRN (05:43)
[2017-12-10] MEDS: PANTOPRAZOLE 40 MG TAB PO SCH (05:43)
[2017-12-10 05:56] VITALS: BP 108/61
[2017-12-10 07:50] LABS: BUN/Creatinine Ratio 22.8; Calcium 7.9 mg/dL (8.5-10.1); Magnesium 1.7 mg/dL (1.6-2.6); Potassium 4.1 mmol/L (3.5-5.1)
[2017-12-10 07:57] LABS: Basophils # (auto) 0 uL; Basophils % (auto) 0.4 % (0.0-2.0); Eosinophils # (auto) 0.1 uL; Eosinophils % (auto) 2.5 % (0.0-7.0); Hematocrit 35.8 % (36.0-46.0); Hemoglobin 11.8 g/dL (12.2-16.2); Lymphocytes # (auto) 1.1 uL; Lymphocytes % (auto) 18.5 % (10.0-50.0); Mean Corpuscular Hemoglobin 29.5 pg (28.0-32.0); Mean Corpuscular Hgb Conc. 32.9 g/dL (32.0-36.0); Mean Corpuscular Volume 89.6 fL (80.0-100.0); Monocytes # (auto) 0.6 uL; Monocytes % (auto) 9.6 % (0.0-12.0); Neutrophils # (auto) 4.1 uL; Nucleated Red Blood Cells % 0.1 %; Platelet Count (auto) 201 10^3/uL (140-450); Red Cell Distribution Width 15.5 % (11.8-14.3)
[2017-12-10 08:00] VITALS: BP 92/42
[2017-12-10] MEDS: AMITRIPTYLINE HCL 25 MG TAB PO SCH (09:27)
[2017-12-10] MEDS ORDERED: MAGNESIUM SULFATE 1GM/100ML 100 ML IV ONE (10:45)
[2017-12-10] MEDS ORDERED: AMITRIP PO (10:46)
[2017-12-10] MEDS ORDERED: OLAN20TA17 PO (10:46)
[2017-12-10] MEDS ORDERED: CHL25T PO (10:46)
[2017-12-10] MEDS ORDERED: TRAZ100T2 PO (10:46)
[2017-12-10 13:00] VITALS: BP 99/52
[2017-12-10 15:22] VITALS: BP 99/52
[2017-12-10 17:00] VITALS: BP 95/54
== END 2017-12-10 18:10 | disposition home health service (06) | DRG 861 ==
LOC: EDUNIT# 13:40 → EDBD 13:40 → ER 13:43 → OVERFLOW 13:44 → EAST 23:57 → CENTRAL 12-09 23:44
PROVIDERS: ADMIT Nurse Practitioner Family; ATTEND Internal Medicine
DX: R41.82 Altered mental status, unspecified (principal); F20.9 Schizophrenia, unspecified; Z91.14 Patient's other noncompliance with medication regimen; F31.9 Bipolar disorder, unspecified; F41.9 Anxiety disorder, unspecified; Z79.82 Long term (current) use of aspirin; Z82.49 Family history of ischemic heart disease and other diseases of the circulatory system; F17.210 Nicotine dependence, cigarettes, uncomplicated; G89.29 Other chronic pain; M54.9 Dorsalgia, unspecified; Z80.0 Family history of malignant neoplasm of digestive organs; Z85.07 Personal history of malignant neoplasm of pancreas; Z90.710 Acquired absence of both cervix and uterus; Z90.49 Acquired absence of other specified parts of digestive tract
CPT/HCPCS: 36415; 80048; 80053; 80307; 80320; 81001; 83735; 85025; 87081; 87086; Q0161

== ENCOUNTER 2018-01-05 12:08 | Emergency (ER) | payer MEDICAID ==
[~2018-01-05] VITALS: Ht 154.9 cm; Wt 43.5 kg
[~2018-01-05 12:08] MED LIST changes: +AMITRIP PO; -ASPI81CH43 PO; -ATOR20TA50 PO; +CHL25T PO; -METO10TA3 PO; -OLAN20TA13 PO; +OLAN20TA17 PO; +PERCOT PO; -[UNRECOGNIZED DRUG - CODE] PO
[2018-01-05] MEDS ORDERED: KETOROLAC TROMETH 60MG/2ML VIAL IM ONE (12:45)
[2018-01-05 12:59] VITALS: BP 98/68
== END 2018-01-05 13:17 | disposition home or self-care (01) ==
LOC: EDBD 12:08 → ER 12:08
DX: M54.6 Pain in thoracic spine (principal); G89.29 Other chronic pain; F17.210 Nicotine dependence, cigarettes, uncomplicated; E78.5 Hyperlipidemia, unspecified; Z90.49 Acquired absence of other specified parts of digestive tract; Z90.710 Acquired absence of both cervix and uterus; Z85.07 Personal history of malignant neoplasm of pancreas
CPT/HCPCS: 96372; 99283; J1885